=== PATIENT | female | born 1940 | race Caucasian/White ===

== ENCOUNTER 2024-11-15 14:47 | Emergency (ER) | payer OTHER, SELFPAY ==
[2024-11-15 14:48] VITALS: BP 154/67
[2024-11-15 14:52] VITALS: BP 154/67
--- NOTE | 2024-11-15 16:00 | ED.GENMED ---
History of Present Illness
General
Chief Complaint: Foreign Body Ingestion
Time Seen by Provider: 11/15/24 15:07
History of Present Illness
History of Present Illness:
84-year-old female with recent history of C2 fracture in [place] collar presenting to the emergency department for concern of aspiration. Prior to arrival patient was at her facility and was eating breakfast. She was noted to have difficulty
expectorating clearing her mucus, concerned that she aspirated. She tried to eat lunch and had similar symptoms which prompted the facility bring her to the hospital. She is currently asymptomatic. Denies chest pain or difficulty breathing.
Denies abdominal pain or GI complaints. She notes that she is having a headache and some generalized pain because she has not been given her p.o. medications today. Denies additional acute medical complaints
Phy Exam
Physical Exam
Physical Exam:
General: Well-appearing, no clinical signs of dehydration, nontoxic and in no acute distress
HEENT: protecting airway
Neck: appears supple
CV: Normal heart rate, regular rhythm
Resp: No accessory muscle use, no increased work of breathing, lungs clear to auscultation bilaterally
Abd: no distension
Extremities: No deformities, no swelling
Neuro: alert, no focal neurologic deficit
: deferred
Rectal: deferred
Psych: Normal affect
Skin: Intact
Course
Orders/Labs/Results
Orders:
Orders
11/15/24 14:59
CR Chest Single View Urgent
Reason For Exam: aspiration
11/15/24 15:42
Baclofen [Lioresal] 5 mg PO NOW STA
Gabapentin [Neurontin] 400 mg PO NOW STA
Tramadol HCl [Ultram] 50 mg PO NOW STA
Vital Signs
Initial and Last Documented VS:
Initial Vital Signs
Temp Pulse Resp BP Pulse Ox
98.2 F 76 16 154/67 97
11/15/24 14:48 11/15/24 14:48 11/15/24 14:48 11/15/24 14:48 11/15/24 14:48
Last Documented Vital Signs
Temp Pulse Resp BP Pulse Ox
98.2 F 71 13 154/67 96
11/15/24 14:48 11/15/24 15:30 11/15/24 15:15 11/15/24 14:52 11/15/24 16:04
MDM/Problems Addressed
MDM/Problems Addressed:
84-year-old female with recent history of C2 fracture presenting with concern of aspiration. Vital signs on arrival are normal
On exam, patient is resting comfortably, no acute distress or complaints. Patient denies any present difficulty breathing, no present increased work of breathing or hypoxia. Low suspicion for any severe obstruction or aspiration. Patient is
handling her secretions without difficulty. Will screen with chest x-ray imaging. Patient notes she is having some general pain and discomfort since her fall, was not given her p.o. medications today due to preceding events. Will administer her
medications.
17:00 -chest x-ray is clear. At this time no indication for antibiotics. Patient tolerated her medications without difficulty. Feel stable for discharge. However, close interval follow-up recommended, and advised return to the hospital with any
increased difficulty breathing or development of fever.
*Pulse Oximetry
SaO2: 96
Oxygen Mode of Delivery: Room air
*Critical Care Note
Total Time (30-74mins, 75-104mins- exclusive of procedures): Not Applicable
ED Attending Note
-
Portions of this chart may have been created with voice recognition software.� Occasional wrong word or��sound alike� substitutions may have occurred due to the inherent limitations of voice recognition software.
Discharge Plan
Departure
Prescriptions:
No Action
acetaminophen [Tylenol] 325 mg Tablet
650 mg PO Q4HPRN PRN (Reason: mild pain)
alprazolam [Xanax] 1 mg Tablet
1 mg PO DAILYPRN PRN (Reason: anxiety)
gabapentin 400 mg Capsule
400 mg PO TID
aspirin 81 mg Tablet,Delayed Release (Dr/Ec)
81 mg PO DAILY
tramadol 50 mg Tablet
50 mg PO Q8HPRN PRN (Reason: moderate pains)
tramadol 50 mg Tablet
50 mg PO DAILY
trazodone 100 mg Tablet
100 mg PO HS
bisacodyl [Dulcolax (bisacodyl)] 10 mg Suppository
10 mg IA DAILYPRN PRN (Reason: if no bm by 4th day give on day 5)
cyanocobalamin (vitamin B-12) 1,000 mcg/mL Solution
1,000 mcg IM Q14D
Fleet Enema 19-7 gram/118 mL Enema
118 ml IA DAILYPRN PRN (Reason: if no bm by 5th day give on day 6)
insulin glargine U-300 conc [Toujeo Max U-300 SoloStar] 300 unit/mL (3 mL) Insulin Pen
30 unit SC DAILY
baclofen 5 mg Tablet
5 mg PO TID
Referrals:
Berto Grace DO [Family Provider, Internal Medicine]
Interventions
Interventions:
*Risk Screen - Suicide Last Done: 11/15/24 14:48
*General Assessment Last Done: 11/15/24 14:48
*Neglect/Abuse Screening Last Done: 11/15/24 14:48
*ED COVID-19 Vaccine History Last Done: 11/15/24 15:33
ST-[facility]al[facility] Assessment Last Done: 11/15/24 15:32
ED- Pulmonary Assessment Last Done: 11/15/24 15:32
ED-EENT Assessment Last Done: 11/15/24 15:32
Discharge Date and Time
Print Language: BENGALI
[2024-11-15] MEDS: ULTRAM 50 MG PO (16:04)
[2024-11-15] MEDS: LIORESAL 5 MG PO (16:04)
[2024-11-15] MEDS: NEURONTIN 400 MG PO (16:05)
--- NOTE | 2024-11-15 17:56 | EDRN ---
RN attempted to call [facility] to give report;however, no one answered phone call at facility. Report given to pt.'s family member at bedside.
[2024-11-15 18:09] LABS: Glucose - Point of Care 80 mg/dl (70-99)
[2024-11-15 18:18] VITALS: BP 150/62
== END 2024-11-15 20:11 | disposition home or self-care (01) ==
LOC: EMR 14:47
PROVIDERS: EMERGENCY PHYSICIAN Student in an Organized Health Care Education/Training Program; FAMILY PHYSICIAN Internal Medicine
DX: T18.9XXA Foreign body of alimentary tract, part unspecified, initial encounter (principal); W44.9XXA Unspecified foreign body entering into or through a natural orifice, initial encounter
CPT/HCPCS: 99283; 71045; 82962

== ENCOUNTER → 2024-11-27 09:34 | Outpatient (REF) | payer OTHER, SELFPAY | LOC: MRI 09:34 | PROVIDERS: ATTENDING PHYSICIAN Nurse Practitioner Gerontology | DX: S12.110A Anterior displaced Type II dens fracture, initial encounter for closed fracture (principal) | CPT/HCPCS: 70543; A9575 ==